=== PATIENT | male | born 1960 | race Caucasian/White ===

== ENCOUNTER 2017-02-15 15:09 | Emergency (ER) | payer OTHER ==
[~2017-02-15] VITALS: Ht 182.9 cm; Wt 95.3 kg
[~2017-02-15 15:09] MED LIST: CIPR-262 PO; TAMS-3 PO
[2017-02-15] MEDS ORDERED: ALPR1TAB2 PO (15:20)
[2017-02-15] MEDS ORDERED: EPINEPHRINE-PF 1:1000 1 MG/ML AMPUL IV ONE (15:30)
[2017-02-15] MEDS ORDERED: EPINEPHRINE 1 MG/1 ML AMP ONE (15:41)
--- NOTE | 2017-02-15 15:41 | NUR ---
Patient discharged to home in stable conditon. Written and verbal after care instructions given. Patient verbalizes understanding of instructions.
== END 2017-02-15 15:43 | disposition home or self-care (01) ==
LOC: ER 15:09
DX: S01.112A Laceration without foreign body of left eyelid and periocular area, initial encounter (principal); F17.200 Nicotine dependence, unspecified, uncomplicated; X58.XXXA Exposure to other specified factors, initial encounter; Y93.89 Activity, other specified; Y92.9 Unspecified place or not applicable; Y99.9 Unspecified external cause status
CPT/HCPCS: A4663; J0171

== ENCOUNTER 2018-05-24 22:05 | Emergency (ER) | payer MEDICAID, OTHER ==
[~2018-05-24] VITALS: Ht 188 cm; Wt 95.3 kg
[~2018-05-24 22:05] MED LIST changes: +ALPR1TAB2 PO; -CIPR-262 PO; -TAMS-3 PO
[2018-05-24] MEDS ORDERED: ALPRAZOLAM 0.5 MG TABLET (22:16)
--- NOTE | 2018-05-24 22:18 | NUR ---
RECEIVED PATIENT IN ROOM 2A WITH C/O PAIN IN RIGHT LOWER EXTREMITY S/P FALL 2 DAYS AGO. AAOX3, PAIN 5/10, RIGHT LOWER LEG WITH SWELLNG AND PAIN ON PALPATION. DR TOBIAS AT BEDSIDE, XRAYS ORDERED.
--- NOTE | 2018-05-24 22:19 | NUR ---
XRAYS DONE AT BEDSIDE.
[2018-05-24] MEDS ORDERED: KETOROLAC TROMETHAMINE 15 MG INJ IM ONE (22:30)
[2018-05-24] MEDS ORDERED: IBUPROFEN 600 MG TABLET ONE (22:34)
[2018-05-24] MEDS ORDERED: HYDROMORPHONE 2 MG/1 ML DISP.SYRIN ONE (22:34)
--- NOTE | 2018-05-24 22:36 | NUR ---
XRAY + FRACTURE RIGHT ANKLE, PATIENT MEDICATED FOR PAIN.
[2018-05-24] MEDS ORDERED: IBUPROFEN 600 MG TABLET PO ONE (22:45)
--- NOTE | 2018-05-24 22:58 | NUR ---
Patient discharged to home in stable conditon. Written and verbal after care instructions given. Patient verbalizes understanding of instructions.
== END 2018-05-24 23:00 | disposition home or self-care (01) ==
LOC: ER 22:09
DX: S82.831A Other fracture of upper and lower end of right fibula, initial encounter for closed fracture (principal); F17.200 Nicotine dependence, unspecified, uncomplicated; I10 Essential (primary) hypertension; W18.40XA Slipping, tripping and stumbling without falling, unspecified, initial encounter; Y93.89 Activity, other specified; Y92.89 Other specified places as the place of occurrence of the external cause; Y99.8 Other external cause status
CPT/HCPCS: 73610; 73630; A4663; J1170

== ENCOUNTER 2018-06-21 02:40 | Emergency (ER) | payer MEDICAID ==
[~2018-06-21] VITALS: Ht 182.9 cm; Wt 93.0 kg
[~2018-06-21 02:40] MED LIST changes: +ALPRAZOLAM 0.5 MG TABLET
[2018-06-21] MEDS ORDERED: MORPHINE SULFATE 4 MG/1 ML DISP.SYRIN IV ONE (03:00)
[2018-06-21] MEDS ORDERED: IV NORMAL SALINE 1000 ML BAG IV ONE (03:00)
[2018-06-21] MEDS ORDERED: MORPHINE SULFATE 4 MG/1 ML DISP.SYRIN ONE (03:14)
[2018-06-21 03:22] LABS: BASOPHILS # (AUTO) 0.1 K/uL (0.0-8.0); BASOPHILS % (AUTO) 0.7 % (0.0-2.0); EOSINOPHILS # (AUTO) 0.2 K/uL (0.0-0.7); EOSINOPHILS % (AUTO) 1.6 % (0.0-7.0); HEMATOCRIT 45.4 % (36.7-47.1); HEMOGLOBIN 15.7 g/dL (12.5-16.3); LYMPHOCYTES # (AUTO) 1.5 K/uL (20.0-40.0); LYMPHOCYTES % (AUTO) 13.2 % (20.5-51.5); MEAN CORPUSCULAR HEMOGLOBIN 27.1 uug (23.8-33.4); MEAN CORPUSCULAR HGB CONC 35 g/dL (32.5-36.3); MEAN CORPUSCULAR VOLUME 78.6 fL (73.0-96.2); MONOCYTES # (AUTO) 0.8 K/uL (2.0-10.0); MONOCYTES % (AUTO) 7.3 % (0.0-11.0); NEUTROPHILS # (AUTO) 8.8 K/uL (1.8-8.9); NEUTROPHILS % (AUTO) 77.2 % (38.5-71.5); PLATELET COUNT (AUTO) 243 K/uL (152-348); RED BLOOD CELL COUNT(AUTO) 5.78 MIL/uL (4.06-5.63); WHITE BLOOD COUNT (AUTO) 11.4 K/uL (3.6-10.2)
[2018-06-21 03:23] LABS: CREATININE 1.2 mg/dL (0.6-1.3); POTASSIUM 4.9 mmol/L (3.5-5.1)
[2018-06-21 03:28] LABS: *BILIRUBIN,URIN NEGATIVE (NEGATIVE); *BLOOD, URINE 2+ (NEGATIVE); *CLARITY,URINE CLEAR (CLEAR); *COLOR,URINE YELLOW (YELLOW); *KETONES,URINE NEGATIVE (NEGATIVE); *PROTEIN,URINE 1+ (NEGATIVE); *UROBILINOGEN,URINE 0.2 E.U./dl (NORMAL); LEUKOCYTE ESTERASE ,URINE NEGATIVE (NEGATIVE); NITRITE, URINE NEGATIVE (NEGATIVE); UGLUCOSE NEGATIVE (NEGATIVE)
[2018-06-21 03:29] LABS: BILIRUBIN,DIRECT 0.1 mg/dL (0.0-0.2); BILIRUBIN,TOTAL 0.3 mg/dL (0.2-1.0); TOTAL PROTEIN, SERUM 7.7 g/dL (6.4-8.2)
--- NOTE | 2018-06-21 03:29 | NUR ---
Pt. ambulated into ED w/ c/o 01/20 R flank pain, difficulty urinating w/ short streams, denies CP/HUNT/F/C/N/V, A/Ox4, abdomen is soft, round, distended pt. states he feels "bloated",
--- NOTE | 2018-06-21 03:31 | NUR ---
network technology instructor at bedside for CT transport,
[2018-06-21 03:38] LABS: BACTERIA,URINE NONE SEEN /HPF (NONE SEEN); RBC,URINE 20-50 /HPF (0-3); SQUAMOUS EPITHELIAL CELL,UR NONE SEEN /HPF (NONE SEEN); WBC,URINE 0-3 /HPF (0-3)
--- NOTE | 2018-06-21 03:53 | NUR ---
Pt. back from CT
[2018-06-21] MEDS ORDERED: KETOROLAC TROMETHAMINE 30 MG INJ ONE (04:27)
[2018-06-21] MEDS ORDERED: KETOROLAC TROMETHAMINE 30 MG INJ IVP ONE (04:30)
--- NOTE | 2018-06-21 05:05 | NUR ---
Patient discharged to home in stable conditon. Written and verbal after care instructions given. Patient verbalizes understanding of instructions. Pt. d/c w/ prescriptions per MD order, instructed not to drive, left w/ all belongings, IV/ID band removed, no acute distress, VSS, left in taxi,
== END 2018-06-21 05:08 | disposition home or self-care (01) ==
LOC: ER 02:41
DX: M54.9 Dorsalgia, unspecified (principal); N13.30 Unspecified hydronephrosis; F17.290 Nicotine dependence, other tobacco product, uncomplicated; F15.10 Other stimulant abuse, uncomplicated; Z79.899 Other long term (current) drug therapy
CPT/HCPCS: 36415; 74176; 80048; 80076; 81001; 85025; 96374; 96375; 99284; 99406; J1885; J2270; A4663; J7040

== ENCOUNTER 2018-09-15 22:30 | Emergency (ER) | payer MEDICAID ==
[~2018-09-15] VITALS: Ht 182.9 cm; Wt 93.0 kg
--- NOTE | 2018-09-15 22:42 | NUR ---
Pt ambulates to ER with c/o left testicular swelling and pain x 2 weeks, however, worst in the past 2 days.
[2018-09-15] MEDS ORDERED: PIPERACILLIN SODIUM/TAZOBACTAM 3.375 G in IV DEXTROSE 5% 50 ML IV ONE (23:15)
[2018-09-15] MEDS ORDERED: VANCOMYCIN IV 1,000 MG in IV DEXTROSE 5% 250 ML IV ONE (23:15)
[2018-09-15] MEDS ORDERED: HYDROCODONE/APAP 5-325MG TABLET PO ONE (23:15)
[2018-09-15] MEDS ORDERED: ONDANSETRON 4 MG/2 ML VIAL IV ONE (23:15)
[2018-09-15] MEDS ORDERED: ONDANSETRON 4 MG/2 ML VIAL ONE (23:22)
[2018-09-15] MEDS ORDERED: PIPERACILLIN/TAZOBACTAM/D5W 50 ML IV ONE (23:22)
[2018-09-15] MEDS ORDERED: HYDROCODONE/APAP 5-325MG TABLET ONE (23:22)
[2018-09-15 23:24] LABS: BASOPHILS # (AUTO) 0.1 K/uL (0.0-8.0); BASOPHILS % (AUTO) 0.6 % (0.0-2.0); EOSINOPHILS # (AUTO) 0.1 K/uL (0.0-0.7); EOSINOPHILS % (AUTO) 0.7 % (0.0-7.0); HEMATOCRIT 44.5 % (36.7-47.1); HEMOGLOBIN 14.8 g/dL (12.5-16.3); LYMPHOCYTES # (AUTO) 1.7 K/uL (20.0-40.0); MEAN CORPUSCULAR HEMOGLOBIN 25.9 uug (23.8-33.4); MEAN CORPUSCULAR HGB CONC 33 g/dL (32.5-36.3); MEAN CORPUSCULAR VOLUME 77.8 fL (73.0-96.2); MONOCYTES % (AUTO) 8.1 % (0.0-11.0); NEUTROPHILS # (AUTO) 9.9 K/uL (1.8-8.9); NEUTROPHILS % (AUTO) 77.6 % (38.5-71.5); PLATELET COUNT (AUTO) 230 K/uL (152-348); RED BLOOD CELL COUNT(AUTO) 5.72 MIL/uL (4.06-5.63); WHITE BLOOD COUNT (AUTO) 12.8 K/uL (3.6-10.2)
[2018-09-15 23:31] LABS: CREATININE 0.9 mg/dL (0.6-1.3); POTASSIUM 4.3 mmol/L (3.5-5.1)
[2018-09-15 23:37] LABS: BILIRUBIN,DIRECT 0.2 mg/dL (0.0-0.2); BILIRUBIN,TOTAL 0.6 mg/dL (0.2-1.0); TOTAL PROTEIN, SERUM 6.7 g/dL (6.4-8.2)
--- NOTE | 2018-09-15 23:39 | NUR ---
registered diet technician at bedside.
[2018-09-15] MEDS ORDERED: VANCOMYCIN IV 200 ML ONE (23:56)
--- NOTE | 2018-09-16 00:13 | NUR ---
Urine sample collected to lab. Pt is eating sandwich at bedside.
[2018-09-16 00:22] LABS: *BILIRUBIN,URIN NEGATIVE (NEGATIVE); *BLOOD, URINE 2+ (NEGATIVE); *COLOR,URINE YELLOW (YELLOW); *KETONES,URINE NEGATIVE (NEGATIVE); LEUKOCYTE ESTERASE ,URINE 2+ (NEGATIVE); NITRITE, URINE NEGATIVE (NEGATIVE); UGLUCOSE NEGATIVE (NEGATIVE)
[2018-09-16 00:25] LABS: *CLARITY,URINE HAZY (CLEAR)
[2018-09-16 00:29] LABS: BACTERIA,URINE FEW /HPF (NONE SEEN); RBC,URINE 20-50 /HPF (0-3); SQUAMOUS EPITHELIAL CELL,UR FEW /HPF (NONE SEEN); WBC,URINE 50-80 /HPF (0-3)
[2018-09-16 00:30] LABS: MUCUS,URINE FEW /LPF (0-FEW); RED BLOOD CELL CASTS,URINE 0-3 /LPF (NONE SEEN)
--- NOTE | 2018-09-16 02:03 | NUR ---
IV removed. Catheter intact and site benign. Pressure and 4x4 gauze applied to site. No bleeding noted.
--- NOTE | 2018-09-16 02:08 | NUR ---
Patient discharged to home in stable conditon. Written and verbal after care instructions given. Patient verbalizes understanding of instructions. Pt ambulated out of ER in steady gait. All belongings w pt. VSS. No acute distress noted. Pt states has friend to pick him up.
[2018-09-16 02:11] VITALS: BP 121/86
[2018-09-17 23:09] LABS: *GC NAA Negative (Negative); *TRIC.VAG. NAA Negative (Negative)
== END 2018-09-16 02:12 | disposition home or self-care (01) ==
LOC: ER 22:30
DX: N43.40 Spermatocele of epididymis, unspecified (principal); N39.0 Urinary tract infection, site not specified; F17.200 Nicotine dependence, unspecified, uncomplicated; F15.10 Other stimulant abuse, uncomplicated; J20.9 Acute bronchitis, unspecified; Z79.899 Other long term (current) drug therapy
CPT/HCPCS: 36415; 71045; 76870; 80048; 80076; 81001; 85025; 87086; 87491; 96365; 96367; 96375; 99284; J2405; J2543; J3370; A4663

== ENCOUNTER 2018-09-22 18:33 | Emergency (ER) | payer MEDICAID ==
[~2018-09-22] VITALS: Ht 182.9 cm; Wt 93.0 kg
--- NOTE | 2018-09-22 19:17 | NUR ---
PT A/OX4, PRESENTS TO THE ER C/O L TESTICULAR PAIN AND L FLANK PAIN. PT REPORTS HE WAS SEEN IN THIS ER RECENTLY AND HAD FOLLOWED UP W/ AN UROLOGIST W/ A DX OF UTI. PT IS CURRENTLY ON ORAL ANTIBIOTICS FOR UTI BUT PRESENTS TO THE ER C/O WORSENING TESTICULAR PAIN AND L FLANK PAIN. PAIN IS NON-PROVOKED, SHARP IN QUALITY, DOES NOT RADIATE, 10/10, CONSTANT. PT IS TACHYCARDIC W/ A FEVER OF 100.1 F. ER MD MADE AWARE. PT DENIES C/P, SOB, N/V/D, DIZZINESS, HEADACHE. ER MD AT BEDSIDE FOR MSE.
[2018-09-22 19:42] LABS: BASOPHILS # (AUTO) 0.2 K/uL (0.0-8.0); BASOPHILS % (AUTO) 1.2 % (0.0-2.0); EOSINOPHILS # (AUTO) 0.2 K/uL (0.0-0.7); EOSINOPHILS % (AUTO) 1.3 % (0.0-7.0); HEMATOCRIT 42.3 % (36.7-47.1); HEMOGLOBIN 14.1 g/dL (12.5-16.3); LYMPHOCYTES % (AUTO) 14.5 % (20.5-51.5); MEAN CORPUSCULAR HEMOGLOBIN 25.7 uug (23.8-33.4); MEAN CORPUSCULAR HGB CONC 33 g/dL (32.5-36.3); MONOCYTES # (AUTO) 1.1 K/uL (2.0-10.0); MONOCYTES % (AUTO) 7.8 % (0.0-11.0); NEUTROPHILS # (AUTO) 10.2 K/uL (1.8-8.9); NEUTROPHILS % (AUTO) 75.2 % (38.5-71.5); PLATELET COUNT (AUTO) 343 K/uL (152-348); WHITE BLOOD COUNT (AUTO) 13.6 K/uL (3.6-10.2)
[2018-09-22 19:49] LABS: CREATININE 0.9 mg/dL (0.6-1.3); POTASSIUM 3.5 mmol/L (3.5-5.1)
[2018-09-22 19:55] LABS: BILIRUBIN,DIRECT 0.3 mg/dL (0.0-0.2); BILIRUBIN,TOTAL 0.6 mg/dL (0.2-1.0); TOTAL PROTEIN, SERUM 8.2 g/dL (6.4-8.2)
[2018-09-22 20:20] LABS: *BILIRUBIN,URIN 1+ (NEGATIVE); *BLOOD, URINE 1+ (NEGATIVE); *CLARITY,URINE CLEAR (CLEAR); *COLOR,URINE DARK YELLOW (YELLOW); *KETONES,URINE NEGATIVE (NEGATIVE); LEUKOCYTE ESTERASE ,URINE NEGATIVE (NEGATIVE); NITRITE, URINE NEGATIVE (NEGATIVE); UGLUCOSE NEGATIVE (NEGATIVE)
[2018-09-22 20:26] LABS: WBC,URINE 0-3 /HPF (0-3)
[2018-09-22 20:27] LABS: MUCUS,URINE MANY /LPF (0-FEW); SQUAMOUS EPITHELIAL CELL,UR FEW /HPF (NONE SEEN)
--- NOTE | 2018-09-22 21:55 | NUR ---
LUCIANA BERUMEN AT BEDSIDE FOR PT UPDATE.
[2018-09-22] MEDS ORDERED: CEFTRIAXONE 1 G VIAL ONE (22:30)
[2018-09-22] MEDS: CEFTRIAXONE 1 G in IV DEXTROSE 5% 50 ML IV ONE (22:36)
[2018-09-22] MEDS ORDERED: CIPR-262 PO (22:36)
[2018-09-22] MEDS ORDERED: VANCOMYCIN IV 200 ML ONE (23:07)
[2018-09-22] MEDS: VANCOMYCIN IV 1,000 MG in IV DEXTROSE 5% 250 ML IV ONE (23:10)
--- NOTE | 2018-09-23 00:28 | NUR ---
Patient does not wish to proceed with medical care recommended by Dr. VELASCO. Patient given information related to possible complications, up to and including , which could occur as a result of leaving the hospital at this time. Patient verbalizes understanding of risks involved due to leaving against medical advice. Patient has signed AMA form. 20G IV ACCESS IN L HAND REMOVED PRIOR TO D/C - INNER CANNULA INTACT. PT DID NOT COMPLETE THE IV INFUSION OF VANCOMYCIN.
[2018-09-23 00:32] VITALS: BP 142/86
== END 2018-09-23 00:33 | disposition left against medical advice (07) ==
LOC: ER 18:33
DX: N45.2 Orchitis (principal); N49.2 Inflammatory disorders of scrotum; F17.200 Nicotine dependence, unspecified, uncomplicated; F15.10 Other stimulant abuse, uncomplicated; Z79.2 Long term (current) use of antibiotics; Z79.899 Other long term (current) drug therapy
CPT/HCPCS: 36415; 71045; 74176; 80048; 80076; 81001; 85025; 87086; 96365; 96367; 99284; J0696; J3370; J7060; A4663

== ENCOUNTER 2018-12-03 03:51 | Emergency (ER) | payer MEDICAID ==
[~2018-12-03] VITALS: Ht 182.9 cm; Wt 93.0 kg
[~2018-12-03 03:51] MED LIST changes: -ALPRAZOLAM 0.5 MG TABLET; +CIPR-262 PO
[2018-12-03] MEDS ORDERED: ONDANSETRON 4 MG/2 ML VIAL ONE (04:13)
[2018-12-03] MEDS ORDERED: HYDROMORPHONE 1 MG/1 ML DISP.SYRIN ONE (04:13)
[2018-12-03] MEDS ORDERED: HYDROMORPHONE 1 MG/1 ML DISP.SYRIN IV ONE (04:15)
[2018-12-03] MEDS ORDERED: IV NORMAL SALINE 1000 ML BAG IV ONE (04:15)
[2018-12-03] MEDS ORDERED: ONDANSETRON 4 MG/2 ML VIAL IV ONE (04:15)
--- NOTE | 2018-12-03 04:28 | NUR ---
PATIENT OUT OF UNIT FOR CT SCAN VIA GURNY
--- NOTE | 2018-12-03 04:40 | NUR ---
PATIENT BACK FROM CT SCAN WITH NO DISTRESS NOTED
[2018-12-03 05:01] LABS: BASOPHILS # (AUTO) 0.1 K/uL (0.0-8.0); BASOPHILS % (AUTO) 1.1 % (0.0-2.0); BILIRUBIN,DIRECT 0.1 mg/dL (0.0-0.2); BILIRUBIN,TOTAL 0.3 mg/dL (0.2-1.0); CREATININE 0.8 mg/dL (0.6-1.3); EOSINOPHILS # (AUTO) 0.3 K/uL (0.0-0.7); EOSINOPHILS % (AUTO) 4.8 % (0.0-7.0); HEMATOCRIT 45.1 % (36.7-47.1); LYMPHOCYTES # (AUTO) 2.3 K/uL (20.0-40.0); LYMPHOCYTES % (AUTO) 34.7 % (20.5-51.5); MEAN CORPUSCULAR HEMOGLOBIN 25.8 uug (23.8-33.4); MEAN CORPUSCULAR HGB CONC 33 g/dL (32.5-36.3); MEAN CORPUSCULAR VOLUME 77.6 fL (73.0-96.2); MONOCYTES # (AUTO) 0.5 K/uL (2.0-10.0); MONOCYTES % (AUTO) 7.5 % (0.0-11.0); NEUTROPHILS # (AUTO) 3.4 K/uL (1.8-8.9); NEUTROPHILS % (AUTO) 51.9 % (38.5-71.5); PLATELET COUNT (AUTO) 231 K/uL (152-348); POTASSIUM 3.9 mmol/L (3.5-5.1); RED BLOOD CELL COUNT(AUTO) 5.82 MIL/uL (4.06-5.63); TOTAL PROTEIN, SERUM 7.3 g/dL (6.4-8.2); WHITE BLOOD COUNT (AUTO) 6.6 K/uL (3.6-10.2)
[2018-12-03 05:15] LABS: *BILIRUBIN,URIN NEGATIVE (NEGATIVE); *CLARITY,URINE CLEAR (CLEAR); *COLOR,URINE YELLOW (YELLOW); *KETONES,URINE NEGATIVE (NEGATIVE); *UROBILINOGEN,URINE 0.2 E.U./dl (NORMAL); LEUKOCYTE ESTERASE ,URINE NEGATIVE (NEGATIVE); NITRITE, URINE NEGATIVE (NEGATIVE); UGLUCOSE NEGATIVE (NEGATIVE)
[2018-12-03 05:16] LABS: *BLOOD, URINE TRACE (NEGATIVE)
--- NOTE | 2018-12-03 05:26 | NUR ---
IV removed. Catheter intact and site benign. Pressure and 4x4 gauze applied to site. No bleeding noted.
[2018-12-03 05:28] LABS: BACTERIA,URINE NONE SEEN /HPF (NONE SEEN); RBC,URINE 0-3 /HPF (0-3); SQUAMOUS EPITHELIAL CELL,UR FEW /HPF (NONE SEEN); WBC,URINE 0-3 /HPF (0-3)
[2018-12-03 05:29] LABS: URINE AMORPHOUS PHOSPHATES FEW /HPF
[2018-12-03 05:30] VITALS: BP 159/95
--- NOTE | 2018-12-03 05:30 | NUR ---
Patient discharged to home in stable conditon. Written and verbal after care instructions given. Patient verbalizes understanding of instructions. WALKED OUT OF ER WITH NO DISTRESS NOTED
== END 2018-12-03 05:33 | disposition home or self-care (01) ==
LOC: ER 03:58
DX: R10.32 Left lower quadrant pain (principal); R11.2 Nausea with vomiting, unspecified; F15.10 Other stimulant abuse, uncomplicated; F17.200 Nicotine dependence, unspecified, uncomplicated; Z79.2 Long term (current) use of antibiotics; Z79.899 Other long term (current) drug therapy
CPT/HCPCS: 36415; 74176; 80048; 80076; 81001; 83690; 84484; 85025; 85730; 87086; 96361; 96374; 96375; 99284; J1170; J2405; 70030-TC; A4663; J7030

== ENCOUNTER 2019-06-01 20:55 | Emergency (ER) | payer MEDICAID ==
[~2019-06-01] VITALS: Ht 182.9 cm; Wt 90.7 kg
[~2019-06-01 20:55] MED LIST changes: -CIPR-262 PO
[2019-06-01] MEDS ORDERED: CIPROFLOXACIN HCL 250 MG TABLET PO ONE (21:15)
[2019-06-01] MEDS ORDERED: CIPROFLOXACIN HCL 250 MG TABLET ONE (21:19)
--- NOTE | 2019-06-01 21:22 | NUR ---
Patient discharged to home in stable conditon. Written and verbal after care instructions given. Patient verbalizes understanding of instructions. PATIENT LEFT WITH STABLE GAIT.
[2019-06-01 21:23] VITALS: BP 133/87
== END 2019-06-01 21:23 | disposition home or self-care (01) ==
LOC: ER 20:56
DX: K57.92 Diverticulitis of intestine, part unspecified, without perforation or abscess without bleeding (principal); F17.200 Nicotine dependence, unspecified, uncomplicated; F15.10 Other stimulant abuse, uncomplicated; Z79.899 Other long term (current) drug therapy
CPT/HCPCS: A4663

== ENCOUNTER 2019-06-28 23:48 | Emergency (ER) | payer MEDICAID ==
[~2019-06-28] VITALS: Ht 182.9 cm; Wt 113.4 kg
--- NOTE | 2019-06-29 00:08 | NUR ---
PT AMBULATORY FR HOME C/O L FACIAL PAIN SINCE UPON WAKING UP THIS MORNING ABLE TO SPEAK CLEAR AND COMPLETE SENTENCES ABLE TO SMILE ABLE TO CLENCH TEETH DENIES TRAUMA NOR SURGERIES TO THE SITE DENIES NVD/SOB/JOINTPAIN/FEVERS/CHILLS DENIES RECENT TRAVELS MD AT BEDSIDE FOR HX AND PHYSICAL MONITORED ACCORDINGLY BP AT 177/117MMHG ASYMPTOMATIC AT THIS TIME, NO APPARENT DISTRESS KEPT CALM AND COMFORTABLE
--- NOTE | 2019-06-29 00:10 | NUR ---
BP AT 163/111 HR AT 102 PT IS KNOWN HYPERTENSIVE PT ASYMPTOMATIC AT THIS TIME
--- NOTE | 2019-06-29 00:15 | NUR ---
Patient discharged to home in stable conditon. Written and verbal after care instructions given. Patient verbalizes understanding of instructions. AMBULATORY W/ STABLE GAIT ALL BELONGINGS W/ PT
[2019-06-29 00:19] VITALS: BP 163/111
== END 2019-06-29 00:21 | disposition home or self-care (01) ==
LOC: ER 23:51
DX: L03.211 Cellulitis of face (principal); R03.0 Elevated blood-pressure reading, without diagnosis of hypertension; F17.200 Nicotine dependence, unspecified, uncomplicated; F15.10 Other stimulant abuse, uncomplicated; Z79.899 Other long term (current) drug therapy
CPT/HCPCS: A4663

== ENCOUNTER 2020-01-04 02:26 | Emergency (ER) | payer MEDICAID ==
[~2020-01-04] VITALS: Ht 182.9 cm; Wt 93.0 kg
[2020-01-04] MEDS ORDERED: METRONIDAZOLE 500 MG TABLET PO ONE (03:45)
[2020-01-04] MEDS ORDERED: CIPROFLOXACIN HCL 250 MG TABLET PO ONE (03:45)
[2020-01-04] MEDS ORDERED: METRONIDAZOLE 500 MG TABLET ONE (03:47)
[2020-01-04] MEDS ORDERED: CIPROFLOXACIN HCL 250 MG TABLET ONE (03:47)
[2020-01-04 03:51] VITALS: BP 162/98
--- NOTE | 2020-01-04 03:51 | NUR ---
Patient discharged to home in stable condition. Written and verbal after care instructions given. Patient verbalizes understanding of instructions. Stressed follow up or return to ER for worsening s/s.
== END 2020-01-04 03:52 | disposition home or self-care (01) ==
LOC: ER 02:28
DX: K57.92 Diverticulitis of intestine, part unspecified, without perforation or abscess without bleeding (principal); I88.0 Nonspecific mesenteric lymphadenitis; Z87.19 Personal history of other diseases of the digestive system
CPT/HCPCS: A4663; J7030